=== PATIENT | male | born 1955 | race Caucasian/White ===

== ENCOUNTER → 2019-12-27 | Outpatient (CLI) | payer MEDICARE, OTHER | LOC: LAB 09:06 | DX: U07.1 COVID-19 (principal) ==

== ENCOUNTER → 2020-01-13 | Outpatient (CLI) | payer MEDICARE, OTHER ==
[2020-01-13 14:59] LABS: EOS # 0.1 (0.04-0.40); EOS % 1.8 % (0.0-4.0); HEMATOCRIT 41.6 % (42.0-52.0); HEMOGLOBIN 13.9 g/dL (13.5-18.0); LYMPH# 1.9 (1.50-4.00); MEAN CELL VOLUME 87 fl (78-100); MEAN CORPUSCULAR HEMOGLOBIN 29 pg (27-31); MEAN CORPUSCULAR HGB CONC 33 g/dL (33-37); MEAN PLATELET VOLUME 9.3 fl (7.4-10.4); MONO # 0.7 (0.20-0.80); NEU # 3.3 (1.40-6.50); RED BLOOD COUNT 4.81 M/mm3 (4.20-5.60); RED CELL DISTRIBUTION WIDTH 12.9 % (11.5-14.5); WHITE BLOOD COUNT 6.1 K/mm3 (4.8-10.8)
[2020-01-13 15:00] LABS: PLATELET COUNT 572 K/mm3 (130-400)
[2020-01-13 15:03] LABS: ALBUMIN 4.3 g/dL (3.4-4.8)
[2020-01-13 15:04] LABS: POTASSIUM 3.7 mmol/L (3.5-5.1)
[2020-01-13 15:05] LABS: CALCIUM 9.7 mg/dL (8.3-10.5)
[2020-01-13 15:08] LABS: TOTAL BILIRUBIN 0.6 mg/dL (0.2-1.2)
[2020-01-13 15:13] LABS: MAGNESIUM 1.76 mg/dL (1.60-2.60)
[2020-01-13 15:52] LABS: ERYTHROCYTE SEDIMENTATION RATE 61 mm/hr (0-20)
== END ==
LOC: LAB 14:41
PROVIDERS: Internal Medicine
DX: U07.1 COVID-19 (principal); I10 Essential (primary) hypertension